=== PATIENT | male | born 1980 | race African-American/Black ===

== ENCOUNTER 2020-06-05 04:34 | Emergency (ER) | payer SELFPAY ==
[~2020-06-05] VITALS: Ht 180.3 cm; Wt 83.9 kg
--- NOTE | 2020-06-05 04:44 | NUR ---
PT AAOX4. BIBRA C/O L SIDE OF BACK PAIN RADIATING TO L LEG. HX OF SCIATICA, AT BEDSIDE FOR EVAL. AWAITING ORDERS.
[2020-06-05] MEDS ORDERED: HYDROMORPHONE INJ 2 MG/ML DISP.SYRIN ONE (04:47)
[2020-06-05] MEDS ORDERED: CYCLOBENZAPRINE 10 MG TABLET ONE (04:47)
[2020-06-05] MEDS ORDERED: ONDANSETRON 4 MG TAB.RAPDIS ONE (04:47)
[2020-06-05] MEDS ORDERED: ONDANSETRON 4 MG TAB.RAPDIS SL ONE (05:00)
[2020-06-05] MEDS ORDERED: HYDROMORPHONE INJ 2 MG/ML DISP.SYRIN IM ONE (05:00)
[2020-06-05] MEDS ORDERED: CYCLOBENZAPRINE 10 MG TABLET PO ONE (05:00)
--- NOTE | 2020-06-05 05:31 | NUR ---
PT STATED HE FEELS BETTER. MD AWARE. VSS.
[2020-06-05 06:16] LABS: BILIRUBIN,URINE NEGATIVE (NEGATIVE); BLOOD, URINE NEGATIVE Ery/uL (NEGATIVE); COLOR,URINE YELLOW (YELLOW); LEUKOCYTE ESTERASE ,URINE NEGATIVE (NEGATIVE); NITRITE, URINE NEGATIVE (NEGATIVE); PROTEIN,URINE NEGATIVE (NEGATIVE); UGLUCOSE NEGATIVE (NEGATIVE); UROBILINOGEN,URINE 0.2 EU/dL (0.2)
[2020-06-05 06:38] LABS: BACTERIA,URINE Rare /HPF (None Seen); RBC,URINE NONE SEEN /HPF (0-2); SQUAMOUS EPITHELIAL CELL,UR Rare /HPF (None Seen); WBC,URINE 0-2 /HPF (0-3)
--- NOTE | 2020-06-05 06:41 | NUR ---
PT C/O PAIN. MD AWARE. AWAITING ORDERS.
[2020-06-05] MEDS ORDERED: HYDROCODONE/APAP 5/325MG TABLET ONE (06:50)
--- NOTE | 2020-06-05 06:56 | NUR ---
Patient discharged to home in stable condition. Written and verbal after care instructions given. Patient verbalizes understanding of instruction. Pt wheeled out of E.D. vss.
[2020-06-05] MEDS ORDERED: HYDROCODONE/APAP 5/325MG TABLET PO ONE (07:00)
[2020-06-05 07:02] VITALS: BP 121/72
== END 2020-06-05 07:02 | disposition home or self-care (01) ==
LOC: ER 04:35
DX: M54.42 Lumbago with sciatica, left side (principal)
CPT/HCPCS: 81001; 96372; 99284; J1170; Q0162